=== PATIENT | male | born 1955 | race Caucasian/White ===

== ENCOUNTER 2020-12-17 06:01 | Emergency (ER) | payer OTHER ==
[2020-12-17] MEDS ORDERED: MORPHINE 4 MG/ML SYR ONE (07:09)
[2020-12-17] MEDS ORDERED: FENTANYL CITR 100 MCG/2 ML ONE ×3 (08:33→17:05)
--- NOTE | 2020-12-17 08:42 | RAD REPORT ---
EXAM DESCRIPTION: RAD - Knee Left 3 View - 12/17/2020 7:02 am CLINICAL HISTORY: trauma, leg pain, knee pain COMPARISON: Femur Left dated 12/17/2020; Tib Fib Left dated 12/17/2020; Knee Right 3 View dated 021 FINDINGS: No fracture, dislocation or periosteal reaction.No joint effusion seen. No joint space margy rowing. No soft tissue abnormality. Lateral view has motion degradation affects. Fracture fixation hardware is present in the distal femoral shaft from remote repair. No fracture of the visualized components of the hardware. Sclerotic changes in the femoral shaft are present seconda ry to the hardware placement as well is in the distal femoral shaft and metaphysis from prior hardwar e placement. IMPRESSION: No fracture, joint effusion or acute finding of the knee.
--- NOTE | 2020-12-17 08:45 | RAD REPORT ---
EXAM DESCRIPTION: RAD - Femur Left - 12/17/2020 7:02 am CLINICAL HISTORY: trauma, fall, leg pain COMPARISON: None. FINDINGS: No fracture is identified. No dislocation. Patient has little if any degenerative change at the hip joint. Femoral head maintains smooth rounded contour. Small heterotopic bone focus present along the superior margin of the greater trochanter. There are sclerotic changes at the base of the neck and intertrochanteric region that are related to prior intramedullary jose enrique placement. Patient has compression plate and screws in the midshaft of the left femur. No fracture of the hardwa re. No pathologic changes are present. Cortical and periosteal changes in the midshaft femur are renetta eved to be related to the fracture repair rather than an aggressive bone process. There is no history that would indicate leg pain prior to the traumatic event. No suspicious soft tissue finding. IMPRESSION: Negative left femur examination for acute finding.
--- NOTE | 2020-12-17 08:45 | RAD REPORT ---
EXAM DESCRIPTION: RAD - Tib Fib Left - 12/17/2020 7:02 am CLINICAL HISTORY: Fall, leg pain COMPARISON: Left knee same date FINDINGS: No fracture is identified. There is no dislocation or periosteal reaction noted. No acute or suspicious bony finding. Mild degenerative changes are present at the tibiotalar joint space. No s ignificant degenerative change at the left knee. No foreign body or other soft tissue abnormality. IMPRESSION: Negative left tibia & fibula examination for acute finding.
--- NOTE | 2020-12-17 08:48 | RAD REPORT ---
EXAM DESCRIPTION: RAD - Knee Right 3 View - 12/17/2020 7:02 am CLINICAL HISTORY: trauma, fall COMPARISON: No comparisons FINDINGS: No fracture, dislocation or periosteal reaction.No joint effusion seen. No joint space margy rowing. No foreign body or other soft tissue abnormality. Patient has focal osteochondral injury involving the lateral femoral condyle. There is flattening the cortical surface and subcortical lucency.This is unlikely related to the acute event. IMPRESSION: No acute injury to the left knee. Significant osteochondral injury is present in the lateral femoral condyle not likely acute. Clinical concerns for internal derangement as well as further assessment of the lateral femoral condy le injury can be performed using outpatient MR imaging.
--- NOTE | 2020-12-17 09:54 | EDPHYS ---
Physician Documentation [facility] Name: Kennedy Hauser Age: 65 yrs Sex: Male : 1955 Arrival Date: 12/17/2020 Time: 06:03 Bed 24 Private MD: ED Physician Hola Gracia HPI: 12/17 06:10 This 65 yrs old Male presents to ER via EMS with complaints of Fall Injury. mh7 06:12 Details of fall: The patient fell from an upright position, while walking, and struck a mh7 carpeted surface. Onset: The symptoms/episode began/occurred this morning, today. Associated injuries: The patient sustained left leg and right knee, abrasion, contusion, painful injury. Severity of symptoms: At their worst the symptoms were moderate, earlier today, in the emergency department the symptoms have improved, moderately. 06:12 Patient states that he was trying walk around in the dark at home when he stumbled and mh7 fell landing onto his knees. he denies any head trauma or LOC.. Historical: - Allergies: 06:10 No Known Allergies; rv - PMHx: 06:10 Emphysema; Schizophrenia; rv - Immunization history: Last tetanus immunization: - up to date. - Social history:: Smoking status: Patient reports the use of cigarette tobacco products, cigars. ROS: 06:12 Constitutional: Negative for fever, chills, and weight loss, Eyes: Negative for injury, mh7 pain, redness, and discharge, ENT: Negative for injury, pain, and discharge, Neck: Negative for injury, pain, and swelling, Cardiovascular: Negative for chest pain, palpitations, and edema, Respiratory: Negative for shortness of breath, cough, wheezing, and pleuritic chest pain, Abdomen/GI: Negative for abdominal pain, nausea, vomiting, diarrhea, and constipation, Back: Negative for injury and pain, : Negative for injury, bleeding, discharge, and swelling, Skin: Negative for injury, rash, and discoloration, Neuro: Negative for headache, weakness, numbness, tingling, and seizure, Psych: Negative for depression, anxiety, suicide ideation, homicidal ideation, and hallucinations, Allergy/Immunology: Negative for hives, rash, and allergies, Endocrine: Negative for neck swelling, polydipsia, polyuria, polyphagia, and marked weight changes, Hematologic/Lymphatic: Negative for swollen nodes, abnormal bleeding, and unusual bruising. Exam: 06:12 Constitutional: This is a well developed, well nourished patient who is awake, alert, mh7 and in no acute distress. Head/Face: Normocephalic, atraumatic. Eyes: Pupils equal round and reactive to light, extra-ocular motions intact. Lids and lashes normal. Conjunctiva and sclera are non-icteric and not injected. Cornea within normal limits. Periorbital areas with no swelling, redness, or edema. ENT: Nares patent. No nasal discharge, no septal abnormalities noted. Tympanic membranes are normal and external auditory canals are clear. Oropharynx with no redness, swelling, or masses, exudates, or evidence of obstruction, uvula midline. Mucous membranes moist. Neck: Trachea midline, no thyromegaly or masses palpated, and no cervical lymphadenopathy. Supple, full range of motion without nuchal rigidity, or vertebral point tenderness. No Meningismus. Chest/axilla: Normal chest wall appearance and motion. Nontender with no deformity. No lesions are appreciated. Cardiovascular: Regular rate and rhythm with a normal S1 and S2. No gallops, murmurs, or rubs. Normal PMI, no JVD. No pulse deficits. Respiratory: Lungs have equal breath sounds bilaterally, clear to auscultation and percussion. No rales, rhonchi or wheezes noted. No increased work of breathing, no retractions or nasal flaring. Abdomen/GI: Soft, non-tender, with normal bowel sounds. No distension or tympany. No guarding or rebound. No evidence of tenderness throughout. Back: No spinal tenderness. No costovertebral tenderness. Full range of motion. Neuro: Awake and alert, GCS 15, oriented to person, place, time, and situation. Cranial nerves II-XII grossly intact. Motor strength 5/5 in all extremities. Sensory grossly intact. Cerebellar exam normal. Normal gait. Psych: Awake, alert, with orientation to person, place and time. Behavior, mood, and affect are within normal limits. Vital Signs: 06:03 BP 137 / 96; Pulse 78; Resp 17; Temp 97.6; Pulse Ox 97% on R/A; Weight 62.6 kg; Height rv 5 ft. 7 in. (170.18 cm); 08:27 BP 121 / 84; Pulse 84; Resp 16; Pulse Ox 96% on R/A; iw 13:05 BP 148 / 95; Pulse 97; Resp 16; Temp 98.2; Pulse Ox 96% on R/A; iw 14:05 BP 122 / 80; Pulse 91; Resp 16; Pulse Ox 99% on 4 lpm NC; iw 15:00 BP 146 / 76; Pulse 90; Resp 16; Pulse Ox 95% ; sv 16:30 BP 140 / 75; Pulse 88; Resp 16 S; Temp 98.0(TE); Pulse Ox 98% on 4 lpm NC; aa5 06:03 Body Mass Index 21.61 (62.60 kg, 170.18 cm) rv Ryanne Coma Score: 06:03 Eye Response: spontaneous(4). Verbal Response: oriented(5). Motor Response: obeys rv commands(6). Total: 15. Trauma Score (Adult): 06:03 Eye Response: spontaneous(1); Verbal Response: oriented(1); Motor Response: obeys rv commands(2); Systolic BP: > 89 mm Hg(4); Respiratory Rate: 10 to 29 per min(4); Ryanne Score: 15; Trauma Score: 12 MDM: 07:32 Transition of care: After a detail discussion of the patient's case, care is 7 transferred to Hola Gracia MD. 09:54 Patient medically screened. tw4 12/17 16:08 Order name: SARS-COV-2 RT PCR EDMS 12/17 06:07 Order name: Femur Left XRAY; Complete Time: 09:53 [facility] 12/17 06:07 Order name: Knee Right 3 View XRAY; Complete Time: 09:53 [facility] 12/17 06:07 Order name: Knee Left 3 View XRAY; Complete Time: 09:53 [facility] 12/17 06:11 Order name: Tib Fib Left XRAY; Complete Time: 09:53 [facility] 12/17 10:11 Order name: Diet Regular; Complete Time: 10:12 sv 12/17 12:47 Order name: Knee Left 3 View XRAY; Complete Time: 14:44 tw4 Administered Medications: 07:03 Drug: morphine 4 mg {Note: RASS 0.} Route: IVP; Site: right antecubital; rv 07:35 Follow up: Response: No adverse reaction; No change in condition iw 08:27 Drug: fentaNYL (PF) 25 mcg Route: IVP; Site: right antecubital; iw 09:48 Follow up: Response: No adverse reaction iw 13:36 CANCELLED (Duplicate Order): fentaNYL 100 mcg/hr 1 patches Transdermal once; RASS on iw ADMIN: Combtv4, Very Agttd3, Agttd2, Rstlss1, AlertClm0, Drwsy-1, Lt Sdtn-2, Mod Sdtn-3, Dp Sdtn-4, UnArsble-5 13:45 Drug: fentaNYL (PF) 100 mcg Route: IVP; Site: right antecubital; iw 17:05 Drug: fentaNYL (PF) 100 mcg Route: IVP; Site: right antecubital; aa5 17:10 Follow up: Response: No adverse reaction aa5 Disposition: 12/17/20 14:49 Transfer ordered to [facility]. Diagnosis is Displaced fracture of base of neck of unspecified femur. - Reason for transfer: Higher level of care. - Accepting physician is Dr. - Condition is Stable. - Problem is new. - Symptoms have improved. Signatures: Dispatcher [employer] EDMS Denise Bear RN RN iw Raquel Garcia RN RN aa5 Hola Gracia MD MD tw4 Dimitry Nuñez RN RN rv Jorge Luis Cobb MD MD 7 Minal Dash RN RN zb Corrections: (The following items were deleted from the chart) 13:36 13:36 fentaNYL Patch 100 mcg/hr 1 patches Transdermal once; RASS on ADMIN: Combtv4, iw Very Agttd3, Agttd2, Rstlss1, AlertClm0, Drwsy-1, Lt Sdtn-2, Mod Sdtn-3, Dp Sdtn-4, UnArsble-5 ordered. iw 14:10 09:54 12/17/2020 09:54 Discharged to Home. Impression: Contusion of right knee; tw4 Contusion of left knee. Condition is Stable. Forms are Medication Reconciliation Form, Thank You Letter, Antibiotic Education, Prescription Opioid Use. Follow up: Private Physician; When: Upon discharge from the Emergency Department; Reason: Recheck today's complaints, Continuance of care, Re-evaluation by your physician. Problem is new. Symptoms have improved. tw4 14:57 13:41 CORONAVIRUS+MR.LAB.BRZ ordered. EDMS EDMS 17:20 14:49 12/17/2020 14:49 Transfer ordered to [facility]. zb Diagnosis is Displaced fracture of base of neck of unspecified femur. Reason for transfer: Higher level of care. Accepting physician is . Condition is Stable. Problem is new. Symptoms have improved. tw4 17:38 17:20 12/17/2020 14:49 Transfer ordered to [facility]. aa5 Diagnosis is Displaced fracture of base of neck of unspecified femur. Reason for transfer: Higher level of care. Accepting physician is . Condition is Stable. Problem is new. Symptoms have improved. zb
--- NOTE | 2020-12-17 09:54 | ER ---
Nurse's Notes [facility] Name: Kennedy Hauser Age: 65 yrs Sex: Male : 1955 Arrival Date: 12/17/2020 Time: 06:03 Bed 24 Private MD: Diagnosis: Displaced fracture of base of neck of unspecified femur Presentation: 12/17 06:03 Chief complaint: Patient states: I HURT MY LEFT KNEE. EMS states: HE STUMBLED AND FELL rv ON HIS KNEES. PAIN ON THE LEFT KNEE AND LEG. NO HEAD INJURY. GIVEN 75MCG OF FENTANYL AND ZOFRAN 4MG. Care prior to arrival: None. Care prior to arrival:. Mechanism of Injury: Fall from standing position. Trauma event details: Injury occurred in the [facility], Injury occurred: at home. Injury occurred: December 17, 2020 Injury occurred at: 05:00. 06:03 Acuity: YOANNA 3 rv 06:03 Method Of Arrival: EMS: [facility] rv 06:10 Coronavirus screen: Client denies travel out of the [place] in the last 14 days. Ebola rv Screen: No symptoms or risks identified at this time. Initial Sepsis Screen: Does the patient meet any 2 criteria? No. Patient's initial sepsis screen is negative. Does the patient have a suspected source of infection? No. Patient's initial sepsis screen is negative. Risk Assessment: Do you want to hurt yourself or someone else? Patient reports no desire to harm self or others. Onset of symptoms was December 17, 2020 at 05:00. Trauma Activation: Not Applicable Physician: ED Physician; Name: ; Notified At: ; Arrived At: Physician: General Surgeon; Name: ; Notified At: ; Arrived At: Physician: Radiology; Name: ; Notified At: ; Arrived At: Physician: Respiratory; Name: ; Notified At: ; Arrived At: Physician: Lab; Name: ; Notified At: ; Arrived At: Historical: - Allergies: 06:10 No Known Allergies; rv - PMHx: 06:10 Emphysema; Schizophrenia; rv - Immunization history: Last tetanus immunization: - up to date. - Social history:: Smoking status: Patient reports the use of cigarette tobacco products, cigars. Screenin:03 Abuse screen: Denies threats or abuse. Denies injuries from another. Tuberculosis rv screening: No symptoms or risk factors identified. 06:09 Nutritional screening: No deficits noted. Fall Risk Fall in past 12 months (25 points). rv Secondary diagnosis (15 points) impaired mobility, No IV (0 pts). Ambulatory Aid- Crutches/Cane/Walker (15 pts). Gait- Weak (10 pts.). Mental Status- Oriented to own ability (0 pts). Total Johnson Fall Scale indicates Low Risk Score (25-44 pts). Fall prevention measures have been instituted. Side Rails Up X 2 Frequent Obs/Assesments occuring As available Patient and Family Educated on Fall Prevention Program and strategies. Primary Survey: 06:03 NO uncontrolled hemorrhage observed. Breathing/Chest: Respiratory pattern: regular, rv Respiratory effort: spontaneous, unlabored. Circulation: Skin color: pink. Disability Alert. Exposure/Environment: There is no evidence of uncontrolled external bleeding. No obvious injuries are noted at this time. A warming method has been applied: A warm blanket has been provided to the patient. 16:30 Reassessment Airway Airway Patent Breathing/Chest Respiratory pattern Regular Chest aa5 inspection Symmetrical Circulation Color [employer] Disability Alert. Secondary Survey: 06:03 HEENT: No deficits noted. Head No injury/deformity. Gastrointestinal: No deficits rv noted. : No signs and/or symptoms were reported regarding the genitourinary system. Musculoskeletal: Range of motion: limited in left knee Swelling absent. Assessment: 06:03 General: Appears comfortable, Behavior is calm, cooperative. Pain: Complains of pain in rv left quadriceps and left knee. Neuro: Level of Consciousness is awake, alert, obeys commands, Oriented to person, place, time, situation. EENT: No signs and/or symptoms were reported regarding the EENT system. Cardiovascular: Patient's skin is warm and dry. Respiratory: Airway is patent Respiratory effort is even, unlabored. Musculoskeletal: Range of motion: limited in left knee. 08:09 Reassessment: Patient appears in no apparent distress at this time. Patient and/or iw family updated on plan of care and expected duration. Pain level reassessed. Patient is alert, oriented x 3, equal unlabored respirations, skin warm/dry/pink. pt requesting something to eat, advised that we will wait for xray results before allowing him to eat, pt also requested more morphine, will notify ERP. 09:15 Reassessment: Patient appears in no apparent distress at this time. Patient and/or iw family updated on plan of care and expected duration. Pain level reassessed. Patient is alert, oriented x 3, equal unlabored respirations, skin warm/dry/pink. 10:00 Reassessment: pt able to stand with assistance, states he has a walker at home, is iw calling his son to find a ride to come pick him up. 12:50 Reassessment: attempted to get pt up for discharge, pt stood up and pt c/o extreme iw pain, left knee appears unstable, placed back in stretcher, Dr. Gracia notified, repeat xray ordered. 13:40 Reassessment: pt c/o increasing pain to left knee, verbal order for 100 mcg [address] by iw Dr. Gracia, VSS, pt placed on 4 L NC. 14:45 Reassessment: Patient appears in no apparent distress at this time. Patient and/or iw family updated on plan of care and expected duration. Pain level reassessed. Patient is alert, oriented x 3, equal unlabored respirations, skin warm/dry/pink. Patient states feeling better. 15:30 Reassessment: Patient is alert, oriented x 3, equal unlabored respirations, skin aa5 warm/dry/pink. Pain: Pain currently is 2 out of 10 on a pain scale. 16:00 Reassessment: Awaiting COVID-19 result before pt is transferred to [facility]. Pt aa5 notified of wait time. 16:40 Reassessment: Awaiting EMS for transfer to [facility]. aa5 17:00 Reassessment: Patient is alert, oriented x 3, equal unlabored respirations, skin aa5 warm/dry/pink. Vital Signs: 06:03 BP 137 / 96; Pulse 78; Resp 17; Temp 97.6; Pulse Ox 97% on R/A; Weight 62.6 kg; Height rv 5 ft. 7 in. (170.18 cm); 08:27 BP 121 / 84; Pulse 84; Resp 16; Pulse Ox 96% on R/A; iw 13:05 BP 148 / 95; Pulse 97; Resp 16; Temp 98.2; Pulse Ox 96% on R/A; iw 14:05 BP 122 / 80; Pulse 91; Resp 16; Pulse Ox 99% on 4 lpm NC; iw 15:00 BP 146 / 76; Pulse 90; Resp 16; Pulse Ox 95% ; sv 16:30 BP 140 / 75; Pulse 88; Resp 16 S; Temp 98.0(TE); Pulse Ox 98% on 4 lpm NC; aa5 06:03 Body Mass Index 21.61 (62.60 kg, 170.18 cm) rv Ancona Coma Score: 06:03 Eye Response: spontaneous(4). Verbal Response: oriented(5). Motor Response: obeys rv commands(6). Total: 15. Trauma Score (Adult): 06:03 Eye Response: spontaneous(1); Verbal Response: oriented(1); Motor Response: obeys rv commands(2); Systolic BP: > 89 mm Hg(4); Respiratory Rate: 10 to 29 per min(4); Ancona Score: 15; Trauma Score: 12 ED Course: 06:03 Patient arrived in ED. rv 06:03 Patient has correct armband on for positive identification. rv 06:03 Patient maintains SpO2 saturation greater than 95% on room air. rv 06:04 Jorge Luis Cobb MD is Attending Physician. mh7 06:06 Triage completed. rv 06:10 Thermoregulation: warm blanket given to patient. rv 06:11 Arm band placed on right wrist. Patient placed in the treatment room, on a stretcher, rv Patient notified of wait time. 06:11 No provider procedures requiring assistance completed. Maintain EMS IV. Dressing rv intact. Good blood return noted. Site clean \T\ dry. Gauge \T\ site: G20 RAC. 07:01 Femur Left XRAY In Process Unspecified. EDMS 07:01 Knee Right 3 View XRAY In Process Unspecified. EDMS 07:01 Knee Left 3 View XRAY In Process Unspecified. EDMS 07:01 Tib Fib Left XRAY In Process Unspecified. EDMS 07:02 Dimitry Nuñez, NEGRITO is Primary Nurse. rv 13:24 Knee Left 3 View XRAY In Process Unspecified. EDMS 14:18 initiated transfer to [facility], pt was denied due to no non covid beds,per Isi Garcia. bd 14:25 initiated transfer to [facility]. bd 14:47 Attending Physician role handed off by Jorge Luis Cobb MD tw4 14:47 Hola Gracia MD is Attending Physician. tw4 17:10 Patient transferred, IV remains in place. aa5 17:31 Primary Nurse role handed off by Dimitry Nuñez RN aa5 Administered Medications: 07:03 Drug: morphine 4 mg {Note: RASS 0.} Route: IVP; Site: right antecubital; rv 07:35 Follow up: Response: No adverse reaction; No change in condition iw 08:27 Drug: fentaNYL (PF) 25 mcg Route: IVP; Site: right antecubital; iw 09:48 Follow up: Response: No adverse reaction iw 13:36 CANCELLED (Duplicate Order): fentaNYL 100 mcg/hr 1 patches Transdermal once; RASS on iw ADMIN: Combtv4, Very Agttd3, Agttd2, Rstlss1, AlertClm0, Drwsy-1, Lt Sdtn-2, Mod Sdtn-3, Dp Sdtn-4, UnArsble-5 13:45 Drug: fentaNYL (PF) 100 mcg Route: IVP; Site: right antecubital; iw 17:05 Drug: fentaNYL (PF) 100 mcg Route: IVP; Site: right antecubital; aa5 17:10 Follow up: Response: No adverse reaction aa5 Intake: 16:30 Pt used urinal aa5 Output: 16:30 Urine: 200ml (Voided); Total: 200ml. aa5 16:30 Pt used urinal aa5 Outcome: 09:54 Discharge ordered by . tw4 14:49 ER care complete, transfer ordered by . tw4 17:10 Transferred by ground EMS to [facility], Transfer form completed. aa5 X-rays sent w/ patient. Note: Report given to [facility] 17:10 Condition: stable 17:10 Instructed on the need for transfer, Demonstrated understanding of instructions. 17:20 Patient left the ED. zb Signatures: Dispatcher [employer] EDMS Kellie Montemayor Stephanie, RN RN sv Denise Bear RN RN Raquel Garcia RN RN aaHola Santo MD MD tw4 Dimitry Nuñez RN RN Jorge Luis Cobb MD MD [facility] Minal Dash RN RN zb Corrections: (The following items were deleted from the chart) 20:10 17:38 Patient left the ED. aa5 aa5 20:14 16:30 BP 140 / 75; Pulse 88bpm; Resp 16bpm; Spontaneous; Pulse Ox 98% 4 lpm Nasal aa5 Cannula; aa5
--- NOTE | 2020-12-17 13:36 | RAD REPORT ---
EXAM DESCRIPTION: RAD - Knee Left 3 View - 12/17/2020 1:25 pm CLINICAL HISTORY: DEFORMITY COMPARISON: Knee Left 3 View dated 12/17/2020 FINDINGS: Femur fracture is present obliquely through the distal shaft at the inferior margin of the existing fracture hardware. There is 1 full shaft width anterior displacement approximately 2 cm of overlap. Medial displacement of the distal fracture fragment also present.No large joint effusion or hemarthrosis. No pathologic changes at the fracture site. No significant soft tissue finding. IMPRESSION: Oblique fracture through the distal femur at the level of the inferior margin hardware. Anterior and medial displacement present along with 2 cm of overlap.
[2020-12-17 17:27] VITALS: TEMP 98.2
[2020-12-17 17:29] VITALS: BP 146/76; O2SAT 95
== END 2020-12-17 17:38 | disposition short-term general hospital (02) ==
LOC: ER 06:01
DX: S72.042A Displaced fracture of base of neck of left femur, initial encounter for closed fracture (principal); W18.39XA Other fall on same level, initial encounter; Y93.01 Activity, walking, marching and hiking; Y92.009 Unspecified place in unspecified non-institutional (private) residence as the place of occurrence of the external cause; Z20.822 Contact with and (suspected) exposure to COVID-19; F17.290 Nicotine dependence, other tobacco product, uncomplicated
CPT/HCPCS: 73562 ×3; 73552; 73590; 96375; 96374; 99285; U0003; J3010 ×3